=== PATIENT | male | born 1985 | race Native Hawaiian/Other Pacific Islander ===

== ENCOUNTER 2018-12-30 11:37 | Emergency (ER) | payer OTHER ==
[~2018-12-30] VITALS: Ht 188 cm; Wt 117.9 kg
[2018-12-30 12:40] VITALS: TEMP 99
[2018-12-30 12:59] LABS: PLATELET COUNT 275 K/uL (142-355)
[2018-12-30 13:20] LABS: POTASSIUM 4.2 mmol/L (3.6-5.2)
[2018-12-30 15:52] VITALS: BP 118/66
== END 2018-12-30 16:10 | disposition home or self-care (01) ==
LOC: ED 11:37
PROVIDERS: Emergency Medicine
DX: K43.9 Ventral hernia without obstruction or gangrene (principal)
CPT/HCPCS: 36415; 80053; 82150; 83690; 85027; 99283; Q9963